=== PATIENT | male | born 1965 | race Caucasian/White ===

== ENCOUNTER 2020-11-14 18:41 | Observation (INO) ==
[2020-11-14 19:05] LABS: ABS Eosinophils 0.1 10^3/ul (0-0.6); ABS Lymphocytes 1.5 10^3/ul (1.0-4.8); ABS Monocytes 0.5 10^3/ul (0-0.8); ABS Neutrophils 3.5 10^3/ul (1.5-7.7); Hematocrit 41 % (42-52); Hemoglobin 14.1 g/dL (14.0-18.0); Lymphocyte % 26.8 %; Mean Corpuscular HGB Conc 35 g/dL (31-36); Mean Corpuscular Hemoglobin 32 pg (27-31); Mean Corpuscular Volume 92 fL (80-94); Mean Platelet Volume 9.1 fL (7.4-10.4); Nucleated Red Blood Cells % 0.1; Platelet Count 139 10^3/uL (150-450); Red Blood Count 4.41 10^6 /uL (4.18-5.48); Red Cell Distribution Width 14 % (10-15); White Blood Count 5.7 10^3/uL (3.5-10.8)
[2020-11-14 19:21] LABS: Albumin 4.3 g/dL (3.2-5.2); Albumin/Globulin Ratio 1.6 (1-3); Calcium 9.5 mg/dL (8.6-10.3); Globulin 2.7 g/dL (2-4); Potassium 4.3 mmol/L (3.5-5.0); Total Bilirubin 0.4 mg/dL (0.2-1.0)
[2020-11-14 19:33] LABS: INR 1.05 (0.86-1.15)
[2020-11-14 23:35] LABS: Rapid COVID-19 Molecular Undetected (Undetected)
[2020-11-15] MEDS ORDERED: Dextrose 50% Syringe 50 ml 25 GM/50 ML SYRINGE IV PUSH PRN (00:35)
[2020-11-15] MEDS ORDERED: Iohexol 350 (CONTRAST) 500 ML MDV IV ONE (00:55)
[2020-11-15] MEDS: Heparin 5000 UNITS/ML 1 mL VIAL SUBCUT SCH ×3 (05:57→20:59)
[2020-11-15 06:01] LABS: ABS Eosinophils 0.1 10^3/ul (0-0.6); ABS Lymphocytes 1.7 10^3/ul (1.0-4.8); ABS Monocytes 0.4 10^3/ul (0-0.8); ABS Neutrophils 2.8 10^3/ul (1.5-7.7); Eosinophil % 2.6 %; Hematocrit 40 % (42-52); Hemoglobin 13.8 g/dL (14.0-18.0); Lymphocyte % 33.2 %; Mean Corpuscular HGB Conc 35 g/dL (31-36); Mean Corpuscular Hemoglobin 32 pg (27-31); Mean Corpuscular Volume 92 fL (80-94); Mean Platelet Volume 8.9 fL (7.4-10.4); Platelet Count 125 10^3/uL (150-450); Red Blood Count 4.33 10^6 /uL (4.18-5.48); Red Cell Distribution Width 14 % (10-15); White Blood Count 5.1 10^3/uL (3.5-10.8)
[2020-11-15 06:16] LABS: INR 1.16 (0.86-1.15)
[2020-11-15 06:25] LABS: Calcium 9.1 mg/dL (8.6-10.3); HDL Cholesterol 34.2 mg/dL; Potassium 3.7 mmol/L (3.5-5.0)
[2020-11-15] MEDS: Aspirin EC 81 mg TAB.EC (enteric coated) PO SCH (12:46)
[2020-11-16] MEDS: Heparin 5000 UNITS/ML 1 mL VIAL SUBCUT SCH ×2 (05:36→15:01)
[2020-11-16] MEDS: Aspirin EC 81 mg TAB.EC (enteric coated) PO SCH (07:15)
[2020-11-16] MEDS ORDERED: Flu vaccine *QUAD* 2021-22* 0.5 ML SYRINGE IM ONE (09:00)
[2020-11-16 10:31] LABS: ABS Eosinophils 0.1 10^3/ul (0-0.6); ABS Lymphocytes 1.2 10^3/ul (1.0-4.8); ABS Monocytes 0.3 10^3/ul (0-0.8); ABS Neutrophils 2.5 10^3/ul (1.5-7.7); Eosinophil % 2.2 %; Hematocrit 43 % (42-52); Hemoglobin 14.8 g/dL (14.0-18.0); Lymphocyte % 28.1 %; Mean Corpuscular HGB Conc 34 g/dL (31-36); Mean Corpuscular Hemoglobin 32 pg (27-31); Mean Corpuscular Volume 93 fL (80-94); Mean Platelet Volume 9.2 fL (7.4-10.4); Platelet Count 139 10^3/uL (150-450); Red Blood Count 4.67 10^6 /uL (4.18-5.48); Red Cell Distribution Width 14 % (10-15); White Blood Count 4.1 10^3/uL (3.5-10.8)
[2020-11-16 10:50] LABS: Calcium 9.4 mg/dL (8.6-10.3); Magnesium 2.2 mg/dL (1.9-2.7); Potassium 4.1 mmol/L (3.5-5.0)
[2020-11-16] MEDS ORDERED: Regadenoson 0.4 MG/5 ML SYRINGE ONE (13:25)
[2020-11-16 15:59] VITALS: BP 145/83
== END 2020-11-16 18:00 | disposition home or self-care (01) ==
LOC: EDHOLD 18:41 → ED 18:41 → SUATTDRO 11-15 00:31 → EDHOLD 11-15 09:36 → MED 11-15 10:00
PROVIDERS: ADMIT Internal Medicine; ATTEND Internal Medicine